=== PATIENT | male | born 1985 | race Two or more races ===

== ENCOUNTER 2020-10-22 04:03 | Emergency (ER) | payer OTHER ==
[2020-10-22] MEDS ORDERED: Sodium Chloride 0.9% 10 ML Syringe FLUSH PRN (04:16)
[2020-10-22] MEDS ORDERED: Sodium Chloride 0.9% 2.5 ML Syringe FLUSH PRN (04:16)
[2020-10-22] MEDS ORDERED: Aspirin 81 MG Tab.Chew PO ONE (04:16)
--- NOTE | 2020-10-22 04:19 | EDM.PDOC ---
<NatalyLakhwinder Daniel - Last Filed: 10/22/20 10:43> ED HPI GENERAL MEDICAL PROBLEM - General Stated Complaint: CHEST PAIN, BACK PAIN, SHORTNESS OF BREATH Time Seen by Provider: 10/22/20 04:13 - Related Data Allergies Allergy/AdvReac Type Severity Reaction Status Date / Time No Known Allergies Allergy Verified 10/22/20 04:38 Home Meds: Home Meds Colchicine [Mitigare] 0.6 mg PO BID #60 capsule 10/22/20 [Rx] Ibuprofen [Motrin] 600 mg PO TID #90 tab 10/22/20 [Rx] Pantoprazole Sodium [Protonix] 40 mg PO DAILY #30 tablet. 10/22/20 [Rx] Course - Vital Signs Text/Narrative:: Differential diagnosis: Covid, pneumonia, pneumothorax, aortic dissection, PE, pleurisy, pericarditis, ACS, other Patient presents to the emergency department complaining of sharp chest pain worse with movement. Patient denies any traumatic injury. Patient without significant ACS risk factors. EKG with diffuse ST elevation. There are no reciprocal changes. Pain is been there since 5 PM and troponin x2 - > doubt ACS. CT scan shows no evidence of aortic dissection or PE or pericardial effusion or other marked abnormality as per radiology. Cardiology, Dr. Ruiz, was consulted. He reviewed the EKGs and the laboratory data. ESR and sed rate are negligible. Echo as per cardiology without any marked acute abnormalities. He recommends NSAIDs and colchicine with follow-up Departure - Departure Time of Disposition: 10:48 Disposition: Home, Self-Care 01 Condition: Good Clinical Impression: Chest pain - Discharge Information Prescriptions: Colchicine [Mitigare] 0.6 mg PO BID #60 capsule Ibuprofen [Motrin] 600 mg PO TID #90 tab Pantoprazole Sodium [Protonix] 40 mg PO DAILY #30 tablet. Instructions: Chest Wall Pain, [id number] Referrals: PCP,None [Primary Care Provider] - Inder Ruiz MD [Physician] - 2 Weeks (consulted in the ED. Chest pain. treated for possible pericarditis.) Forms: ED Department Discharge Additional Instructions: Return for any increasing chest pain or shortness of breath change or worsening condition or lack of improvement. Take medications as prescribed. 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 This information is to outline your options for follow-up care. We provide all patients seen in our emergency department with a follow-up referral. The need for follow-up, as well as the timing and circumstances, are variable depending upon the specifics of your emergency department visit. If you don't have a primary care physician on staff, we will provide you with a referral. We always advise you to contact your personal physician following an emergency department visit to inform them of the circumstance of the visit and for follow-up with them and/or the need for any referrals to a consulting specialist. The emergency department will also refer you to a specialist when appropriate. This referral assures that you have the opportunity for follow-up care with a specialist. All of these measure are taken in an effort to provide you with optimal care, which includes your follow-up. Primary care clinics in the area: [facility] [address] [place] [address] [place] [address] Under all circumstances we always encourage you to contact your private physician who remains a resource for coordinating your care. When calling for follow-up care, please make the office aware that this follow-up is from your recent emergency room visit. If for any reason you are refused follow-up, please contact the [facility] Emergency Department at and asked to speak to the emergency department charge nurse. <Rosangela Marquis - Last Filed: 10/23/20 03:45> ED HPI GENERAL MEDICAL PROBLEM - General Source of Information: Reports: Patient - History of Present Illness INITIAL COMMENTS - FREE TEXT/NARRATIVE: History of present illness: 35-year-old male presenting with chest pain since 5 PM yesterday. Described as sharp. Radiates to the back. Around 10 PM last night he started to feel slightly short of breath. His family told him it could be a heart attack so he came in. Review of systems: As per history of present illness and below otherwise all systems reviewed and negative. Past medical history: As per history of present illness and as reviewed below otherwise noncontributory. Surgical history: As per history of present illness and as reviewed below otherwise noncontributory. Social history: No reported history of drug or alcohol abuse. Non-smoker. Uses chewing tobacco Family history: As per history of present illness and as reviewed below otherwise noncontributory. Grandmother with [place]. He does report he had a brother that before he was born due to a cardiac valve issue, unknown Physical exam: GEN: no acute distress, well appearing HEENT: Atraumatic, normocephalic, mucous membranes moist, Neck: supple, nontender, trachea midline. Lungs: No respiratory distress. Lungs clear bilaterally. Heart: RRR, S2 murmur Abdomen: Soft, nondistended, nontender. Back: Full range of motion Extremities: Atraumatic. Neurovascularly intact. Neuro: Awake, alert, oriented. Neuro Exam nonfocal. Skin: warm, dry, no lesions Diagnostics: Labs, chest x-ray, EKG, CTA chest EKG performed October 22, 2020 at 4:06 AM, sinus rhythm rate 66, mild diffuse nonspecific ST elevation, questioning pericarditis, no reciprocal changes. No STEMI. Interpreted by me. Repeat EKG performed October 22, 2020 at 4:21 AM, sinus rhythm, rate 58, unchanged diffuse nonspecific ST segment prominence, again questioning pericarditis. No reciprocal changes. No STEMI. Interpreted by me. Repeat EKG performed today October 22, 2020 at 4:31 AM, sinus rhythm, rate 62, again unchanged diffuse ST prominence questioning pericarditis with no reciprocal changes. No STEMI. Interpreted by me. Therapeutics: Aspirin, nitroglycerin MDM: Patient with chest pain since yesterday. Constant. Low risk for coronary artery disease. Initial troponin negative. EKG with ST prominence questioning pericarditis. Pain does radiate to the back. Will check CT angio chest. Impression: [] Plan: [] Definitive disposition and diagnosis as appropriate pending reevaluation and review of above. ED ROS GENERAL - Review of Systems Review Of Systems: See Below (See dictation) ED EXAM, GENERAL - Physical Exam Exam: See Below (See dictation) Course - Vital Signs Text/Narrative:: Patient with chest pain with radiation to back and with possible pleuritic component. EKG with diffuse ST elevations with no reciprocal changes. Due to symptoms, CTA chest was performed. This is pending at time of signout. The patient was signed out to Dr. Ingram for final imaging review and appropriate disposition. Last Recorded V/S: Last Vital Signs Temp 96.9 F 10/22/20 04:39 Pulse 61 10/22/20 11:10 Resp 16 10/22/20 11:10 BP 104/64 10/22/20 11:10 Pulse Ox 98 10/22/20 11:10 - Orders/Labs/Meds Orders: Active Orders 24 hr Category Date Time Status Echo Comp wo Cont [US] Stat Exams 10/22/20 08:28 Taken Saline Lock Insert [OM.PC] Stat Oth 10/22/20 04:16 Ordered Labs: Laboratory Tests 10/22/20 10/22/20 10/22/20 Range/Units 04:16 04:16 04:16 WBC 7.74 (4.0-11.0) K/uL RBC 5.61 (4.50-5.90) M/uL Hgb 17.4 H (13.0-17.0) g/dL Hct 48.1 (38.0-50.0) % MCV 85.7 (80.0-98.0) fL MCH 31.0 (27.0-32.0) pg MCHC 36.2 (31.0-37.0) g/dL RDW Std Deviation 39.6 (28.0-62.0) fl RDW Coeff of Regina 13 (11.0-15.0) % Plt Count 204 (150-400) K/uL MPV 9.90 (7.40-12.00) fL Neut % (Auto) 49.1 (48.0-80.0) % Lymph % (Auto) 38.2 (16.0-40.0) % Daggett % (Auto) 8.5 (0.0-15.0) % Eos % (Auto) 3.6 (0.0-7.0) % Baso % (Auto) 0.6 (0.0-1.5) % Neut # (Auto) 3.8 (1.4-5.7) K/uL Lymph # (Auto) 3.0 H (0.6-2.4) K/uL Daggett # (Auto) 0.7 (0.0-0.8) K/uL Eos # (Auto) 0.3 (0.0-0.7) K/uL Baso # (Auto) 0.1 (0.0-0.1) K/uL Nucleated RBC % 0.0 /100WBC Nucleated RBCs # 0 K/uL ESR (0-14) mm/hr Sodium 137 (136-148) mmol/L Potassium 3.8 (3.5-5.1) mmol/L Chloride 105 (98-107) mmol/L Carbon Dioxide 29.1 (21.0-32.0) mmol/L BUN 12 (7.0-18.0) mg/dL Creatinine 1.1 (0.8-1.3) mg/dL Est Cr Clr Drug Dosing TNP Estimated GFR (MDRD) > 60.0 ml/min Glucose 93 (74-106) mg/dL Calcium 8.5 (8.5-10.1) mg/dL Total Bilirubin 1.1 H (0.2-1.0) mg/dL AST 27 (15-37) IU/L ALT 36 (14-63) IU/L Alkaline Phosphatase 68 (46-116) U/L Troponin I < 0.050 (0.000-0.056) ng/mL C-Reactive Protein (0.00-0.90) mg/dL Total Protein 7.4 (6.4-8.2) g/dL Albumin 4.0 (3.4-5.0) g/dL Globulin 3.4 (2.6-4.0) g/dL Albumin/Globulin Ratio 1.2 (0.9-1.6) Lipase 118 (73-393) U/L 10/22/20 10/22/20 10/22/20 Range/Units 04:16 07:15 08:16 WBC (4.0-11.0) K/uL RBC (4.50-5.90) M/uL Hgb (13.0-17.0) g/dL Hct (38.0-50.0) % MCV (80.0-98.0) fL MCH (27.0-32.0) pg MCHC (31.0-37.0) g/dL RDW Std Deviation (28.0-62.0) fl RDW Coeff of Regina (11.0-15.0) % Plt Count (150-400) K/uL MPV (7.40-12.00) fL Neut % (Auto) (48.0-80.0) % Lymph % (Auto) (16.0-40.0) % Daggett % (Auto) (0.0-15.0) % Eos % (Auto) (0.0-7.0) % Baso % (Auto) (0.0-1.5) % Neut # (Auto) (1.4-5.7) K/uL Lymph # (Auto) (0.6-2.4) K/uL Daggett # (Auto) (0.0-0.8) K/uL Eos # (Auto) (0.0-0.7) K/uL Baso # (Auto) (0.0-0.1) K/uL Nucleated RBC % /100WBC Nucleated RBCs # K/uL ESR 1 (0-14) mm/hr Sodium (136-148) mmol/L Potassium (3.5-5.1) mmol/L Chloride (98-107) mmol/L Carbon Dioxide (21.0-32.0) mmol/L BUN (7.0-18.0) mg/dL Creatinine (0.8-1.3) mg/dL Est Cr Clr Drug Dosing Estimated GFR (MDRD) ml/min Glucose (74-106) mg/dL Calcium (8.5-10.1) mg/dL Total Bilirubin (0.2-1.0) mg/dL AST (15-37) IU/L ALT (14-63) IU/L Alkaline Phosphatase (46-116) U/L Troponin I < 0.050 (0.000-0.056) ng/mL C-Reactive Protein <0.20 (0.00-0.90) mg/dL Total Protein (6.4-8.2) g/dL Albumin (3.4-5.0) g/dL Globulin (2.6-4.0) g/dL Albumin/Globulin Ratio (0.9-1.6) Lipase (73-393) U/L Meds: Medications Discontinued Medications Generic Name Dose Route Start Last Admin Trade Name Freq PRN Reason Stop Dose Admin Aspirin 324 mg 10/22/20 04:16 10/22/20 04:51 Aspirin 81 Mg Tab.Chew PO 10/22/20 04:17 324 mg ONETIME ONE Administration Colchicine 0.6 mg 10/22/20 08:36 10/22/20 09:35 Colchicine 0.6 Mg Tab PO 10/22/20 08:37 0.6 mg ONETIME ONE Administration Iopamidol 100 ml 10/22/20 06:32 10/22/20 06:33 Iopamidol 755 Mg/Ml 500 Ml Multipack Bottle IVPUSH 10/22/20 06:33 100 ml ONETIME STA Administration Nitroglycerin 0.4 mg 10/22/20 04:35 10/22/20 04:52 Nitroglycerin 0.4 Mg Tab.Sl SL 10/22/20 04:36 0.4 mg ONETIME ONE Administration Sodium Chloride 10 ml 10/22/20 04:16 10/22/20 09:35 Sodium Chloride 0.9% 10 Ml Syringe FLUSH 10 ml ASDIRECTED PRN Administration Keep Vein Open Sodium Chloride 2.5 ml 10/22/20 04:16 10/22/20 09:35 Sodium Chloride 0.9% 2.5 Ml Syringe FLUSH 2.5 ml ASDIRECTED PRN Administration Keep Vein Open - My Orders Last 24 Hours: My Active Orders 10/22/20 04:16 Saline Lock Insert [OM.PC] Stat - Assessment/Plan Last 24 Hours: My Active Orders 10/22/20 04:16 Saline Lock Insert [OM.PC] Stat
[2020-10-22] MEDS ORDERED: Nitroglycerin 0.4 MG Tab.SL SL ONE (04:35)
[2020-10-22 04:47] LABS: BLOOD UREA NITROGEN,BUN 12 mg/dL (7.0-18.0); CARBON DIOXIDE,CO2 29.1 mmol/L (21.0-32.0); CHLORIDE,CL 105 mmol/L (98-107); GLUCOSE RANDOM 93 mg/dL (74-106); POTASSIUM,K 3.8 mmol/L (3.5-5.1); SODIUM,NA 137 mmol/L (136-148)
[2020-10-22] MEDS ORDERED: Iopamidol 755 MG/ML 500 ML Multipack Bottle IVPUSH STA (06:32)
--- NOTE | 2020-10-22 06:56 | CR ---
Indication: Chest pain Comparison: None available. Technique: PA and Lateral views chest Findings: There is questionable mild interstitial prominence without evidence of dense consolidation, effusion or pneumothorax. The cardiomediastinal silhouette is within normal limits. The bony thorax is grossly intact. Impression: Mild interstitial prominence without evidence dense consolidation. Dictated by Chidi Jimenez MD @ 10/22/2020 6:54:[address] Chidi Jimenez @ Oct 22 2020 6:54AM
--- NOTE | 2020-10-22 07:17 | CT ---
Indication: Chest pain, chest pressure, rule out dissection Technique: Volumetric multidetector CT images of the chest were obtained after the administration of IV contrast. 100 cc Isovue 370 low osmolar intravenous contrast Comparison: None available. Findings: The thoracic inlet and thyroid gland are unremarkable. The thoracic aorta is nonaneurysmal. There is no evidence of filling defect to suggest dissection. There is no central filling defect to suggest pulmonary embolism. There are reactive appearing mediastinal and hilar lymph nodes. There is minimal central bronchial thickening. There is minimal basilar atelectasis versus scar. There is no dense consolidation, effusion, or pneumothorax. There is no evidence of pulmonary mass or suspicious pulmonary nodule. The partially visualized upper abdominal viscera are within normal limits. The thoracic vertebral body heights are grossly maintained with minimal endplate Schmorl`s defects there is mild straightening of the normal thoracic kyphosis. Impression: No evidence of filling defect to suggest aortic dissection. No evidence of filling defect to suggest pulmonary embolus. Mild central bronchial thickening with minimal nonspecific basilar atelectasis. Otherwise, no acute cardiopulmonary abnormality is appreciated. Please note that all CT scans at this facility use dose modulation, iterative reconstruction, and/or weight-based dosing when appropriate to reduce radiation dose to as low as reasonably achievable. Dictated by Chidi Jimenez MD @ 10/22/2020 7:16:[address] Chidi Jimenez @ Oct 22 2020 7:16AM
[2020-10-22] MEDS ORDERED: Colchicine 0.6 MG Tab PO ONE (08:36)
--- NOTE | 2020-10-26 12:36 | ECHO ---
EXAM DATE: 10/22/20 PATIENT'S AGE: 35 The ECHO report has been scanned into [employer] and can be seen in this patient's EMR (Electronic Medical Record) under the REPORTS section. The report has also been scanned into PACS. [id number]
== END 2020-10-22 11:11 | disposition home or self-care (01) ==
LOC: MW.ED 04:03
DX: R07.9 Chest pain, unspecified (principal); R06.02 Shortness of breath
CPT/HCPCS: 36415; 71046; 71275; 80053; 83690; 84484; 85025; 85652; 86140; 93005; 93306; 99285; A9270; Q9967